=== PATIENT | male | born 2000 | race Two or more races ===

== ENCOUNTER 2019-07-04 19:47 | Emergency (ER) | payer SELFPAY ==
[~2019-07-04] VITALS: Ht 165.1 cm; Wt 59.9 kg
[2019-07-04] MEDS ORDERED: ONDANSETRON 4 MG TAB.RAPDIS ONE (20:41)
[2019-07-04] MEDS ORDERED: HYDROCODONE/APAP 5/325MG 1 EACH TABLET ONE (20:41)
[2019-07-04] MEDS ORDERED: ONDANSETRON 4 MG TAB.RAPDIS PO ONE (21:00)
[2019-07-04] MEDS ORDERED: HYDROCODONE/APAP 5/325MG 1 EACH TABLET PO ONE (21:00)
--- NOTE | 2019-07-04 22:15 | NUR ---
ASSUMED CARE OF PT FOR D/C PURPOSES ONLY.
--- NOTE | 2019-07-04 22:20 | NUR ---
PT REC'D CLOTHES UPON DISCHARGE. PT'S FAMILY IS DRIVING PT HOME. Patient discharged to home in stable condition. Written and verbal after care instructions given. Patient verbalizes understanding of instruction AND RX. PT REC'D A COPY OF ALL IMAGING AND THE DISC. PT TO F/U WITH PMD IN 24 HRS.
[2019-07-04 22:25] VITALS: BP 122/65
== END 2019-07-04 22:25 | disposition home or self-care (01) ==
LOC: ER 19:49
DX: R51 Headache (principal); M54.2 Cervicalgia; M54.5 Low back pain; M25.552 Pain in left hip; M79.672 Pain in left foot; M79.652 Pain in left thigh; V49.49XA Driver injured in collision with other motor vehicles in traffic accident, initial encounter; Y93.89 Activity, other specified; Y92.488 Other paved roadways as the place of occurrence of the external cause; Y99.8 Other external cause status
CPT/HCPCS: 70450; 72125; 72131; 73503; 73552; 73590; 73630; 99285; Q0162; 73502